=== PATIENT | male | born 1970 | race Caucasian/White ===

== ENCOUNTER 2024-06-05 07:33 | Day surgery (SDC) | payer BC, SELFPAY ==
[2024-05-31 14:37] VITALS: BMI 39.5
[2024-06-05 07:48] VITALS: BP 149/90; PULSE 76; RESP 18; TEMP 36.4; O2SAT 97
[2024-06-05] MEDS: LACTATED RINGERS 1000ML 1,000 ML 25 ML IV (07:59)
--- NOTE | 2024-06-05 08:10 | P.PNANES_ITS ---
[facility] Disclaimer: The information contained in this section may have been updated after the patient was seen, as this information can be updated by other users. Medical History Hx of skin cancer, basal cell History of kidney stones Surgical History Hx of tonsillectomy Family History Mother Pancreatic cancer Grandfather Colon cancer Father Melanoma Prostate cancer Other Heart disease Social History Smoking Status: Never smoker alcohol intake: never substance use type: denies use current occupational status: retired caffeine: Yes [facility] Anesthesia Checklist Patient Identification Patient Identification: Verbal (Name & ) Structural Data Admitted From: Home Planned Operative Procedure/s: colonoscopy Consent for Planned Operative Procedure(s) Verified: Yes NPO Status Verified Time NPO: 00:00 Airway Assessment Mallampati Score:: Class III C-Spine Mobility Assessed: Yes TMJ Mobility Assessed: Yes Dentition: Good Dentition Neurological Assessment Level of Consciousness: Awake, Alert and Appropriate Anesthesia Plan Anesthesia Risk discussed: Yes Anesthesia Plan: Verified ASA Class: II Anesthesia Type: MAC
--- NOTE | 2024-06-05 08:12 | P.HP_ITS ---
History of Present Illness *Admission Date: 06/05/24 *Reason for visit:: Personal history of adenomatous colon polyps *History of present illness: Mr. Delgado is a 54-year-old gentleman who is here for surveillance colonoscopy secondary to a personal history of adenomatous colon polyps. The examination is deemed medically necessary for surveillance colonoscopy. The patient has been seen, interviewed and examined prior to the procedure by both myself and the anesthesia provider. [facility] Disclaimer: The information contained in this section may have been updated after the patient was seen, as this information can be updated by other users. Medical History (Updated 06/05/24 @ 08:26 by Jose Hobbs II, MD) Hx of skin cancer, basal cell History of kidney stones Surgical History Hx of tonsillectomy Family History Mother Pancreatic cancer Grandfather Colon cancer Father Melanoma Prostate cancer Other Heart disease Social History (Updated 06/05/24 @ 08:11 by Rubin Mcnally CRNA) Smoking Status: Never smoker alcohol intake: never substance use type: denies use current occupational status: retired Travel in the last 8 weeks: None caffeine: Yes Review of Systems Review of Systems Review of systems (narrative): Negative *Cardiovascular Comments: Negative *Gastrointestinal Comments: Negative *Genitourinary Comments: Negative *Musculoskeletal Comments: Negative *Neurologic Comments: Negative Meds Home Medications and Allergies Home Medications ?Medication ?Instructions ?Recorded ?Confirmed ?Type [id number] gram-sod sulfate 9 See Rx Instructions PO .COMPLEX #3 05/25/24 Rx gram-NaCl 5.2gram-KCl-C oral pwdr ea packs (Plenvu) aspirin 81 mg capsule 81 mg PO DAILY 05/31/24 06/05/24 History atorvastatin 40 mg tablet (Lipitor) 40 mg PO DAILY 05/31/24 06/05/24 History losartan 100 mg tablet 100 mg PO DAILY 05/31/24 06/05/24 History New Prescriptions to Start Prescriptions: Allergies Allergy/AdvReac Type Severity Reaction Status Date / Time No Known Allergies Allergy Verified 05/31/24 14:31 Exam Data for Last 24 hours Vital signs and Labs for Last 24 Hours: Temp Pulse Resp BP Pulse Ox O2 Del Method 97.5 F L 76 18 149/90 H 97 Room Air 06/05/24 07:48 06/05/24 07:48 06/05/24 07:48 06/05/24 07:48 06/05/24 07:48 06/05/24 07:48 *Routine HEENT Exam Head: Present normocephalic Eye: Present EOMI and PERRL ENT: Present mucous membranes moist *Routine Neck Exam Neck: Present supple *Routine Respiratory Exam Respiratory: Present CTA bilaterally *Routine Cardiovascular Exam Cardiovascular: Present RRR *Routine Abdominal Exam Abdominal: Present soft and normoactive bowel sounds; Absent tenderness *Routine Rectal Exam Rectal:: deferred *Routine Genitalia Exam Genitalia:: deferred *Routine Extremities Exam Extremities: Absent cyanosis, clubbing or edema *Routine Skin Exam Skin: Present warm; Absent rash *Routine Neurological Exam Neurological: Present alert and oriented X3 Assessment and Plan *Assessment and plan (1) Personal history of adenomatous and serrated colon polyps: Status: Acute Category: Medical Code(s): Z86.0101 - Personal history of adenomatous and serrated colon polyps Plan A/P: 1. Personal history of adenomatous colon polyps is the preprocedural diagnosis. The patient will be anesthetized/sedated using MAC sedation. The patient has been seen and examined. Cardiac and lung assessment prior to the examination is stable. Proceed with planned surveillance colonoscopy
[2024-06-05 08:16] VITALS: O2SAT 98
--- NOTE | 2024-06-05 08:28 | HMH.PROCNOTE ---
[facility] Procedure Note Date: 06/05/24 Time: 08:44 Procedure Note:: Colonoscopy Procedure Report: Colonoscopy with cold biopsy Endoscopist: Jose Hobbs II, MD Referring physician: Sohan Barrera MD Date of Procedure: June 05, 2024 Equipment: Olympus 190 variable stiffness pediatric colonoscope Sedation: MAC sedation Indication: Mr. Reis is a 54-year-old gentleman who is here for follow-up surveillance colonoscopy. His last colonoscopy 5 years ago revealed 3 polyps 1 of which was a 15 mm tubular adenoma. The patient reports no abdominal pain, weight loss, change in his bowel habits or rectal bleeding. He does take psyllium Konsyl daily which has helped. Procedure: Prior to the procedure, a history and physical exam was performed, and patient's medications and allergies were reviewed. The risks, benefits and alternatives of the sedation and procedure were discussed with the patient. All questions were answered and informed consent was obtained. The patient was brought to the procedure room. Patient identification and proposed procedure were verified by the physician and the nurse. The patient was placed in a left lateral decubitus position and the scope was passed under direct vision. Throughout the procedure, the patient's blood pressure, pulse, and oxygen saturations were monitored continuously. The colonoscopy was accomplished without difficulty. The patient tolerated the procedure well. Findings: On digital rectal examination there was normal rectal tone. There were no external hemorrhoids. The colonoscope was introduced through the anal canal to the rectum and advanced to the cecum. The ileocecal valve and appendiceal orifice were identified. The scope was advanced a short distance into the ileum which appeared grossly normal. The scope was then withdrawn into the colon. The cecum, ascending, transverse, descending, sigmoid and rectum were grossly normal. There was a diminutive 2 to 3 mm polyp in the rectum removed via cold biopsy. There were no other mucosal abnormalities identified. Upon retroflexion within the rectum there were grade 1-2 internal hemorrhoids.The preparation was excellent throughout with Stamping [place] Preparation Score of 9. The cecal time was 11 minutes. Impression: 1. Diminutive 2 to 3 mm rectal polyp 2. Grade 1-2 internal hemorrhoids Plan: I will follow-up the polyp histology and recommend repeat surveillance colonoscopy again in 7 to 10 years. I would encourage continuation of bulking psyllium/Konsyl daily.
[2024-06-05 08:46] VITALS: BP 114/62; PULSE 79; RESP 18; TEMP 36.7; O2SAT 92
[2024-06-05 08:56] VITALS: BP 104/67; PULSE 69; RESP 18; O2SAT 92
[2024-06-05 09:06] VITALS: BP 109/75; PULSE 81; RESP 16; O2SAT 97
[2024-06-05 09:16] VITALS: BP 115/80; PULSE 68; RESP 16; O2SAT 97
== END 2024-06-05 09:17 | disposition home or self-care (01) ==
PROVIDERS: PCP Internal Medicine; Visit Provider Internal Medicine Gastroenterology
PROC: (CPT 45380; principal; 2024-06-05 08:30)
DX: K63.5 Polyp of colon (principal); K64.8 Other hemorrhoids; Z09 Encounter for follow-up examination after completed treatment for conditions other than malignant neoplasm; Z86.0101 Personal history of adenomatous and serrated colon polyps
CPT/HCPCS: 45380; J7120